=== PATIENT | male | born 1985 | race Caucasian/White ===

== ENCOUNTER 2019-09-27 12:23 | Outpatient (CLI) | payer SELFPAY | END 2019-09-27 23:59 | disposition home or self-care (01) | LOC: LAB 12:23 | PROVIDERS: ATTEND Emergency Medicine | DX: J02.9 Acute pharyngitis, unspecified (principal); Z20.828 Contact with and (suspected) exposure to other viral communicable diseases | CPT/HCPCS: 81599 ==